=== PATIENT | female | born 1975 | race Caucasian/White ===

== ENCOUNTER 2021-05-29 11:23 | Day surgery (SDC) | payer OTHER ==
[~2021-05-29] VITALS: Ht 157.5 cm; Wt 94.5 kg
[2021-05-29 12:15] LABS: BASO # 0.1 K/mm3 (0.0-0.2); EOS # 0.2 K/mm3 (0.0-0.7); EOS % 2.7 % (0.0-4.0); GRAN % 67.9 % (42.2-75.2); HEMATOCRIT 39.9 % (37.0-47.0); HEMOGLOBIN 13.3 g/dl (12.5-16.0); LYMPH # 1.1 K/mm3 (1.2-3.4); LYMPH % 18.5 % (20.0-51.0); MEAN CELL VOLUME 71 fl (80.0-100.0); MEAN CORPUSCULAR HEMOGLOBIN 24 pg (27-31); MEAN CORPUSCULAR HGB CONC 33 g/dl (33.0-37.0); MEAN PLATELET VOLUME 9.1 fl (7.4-10.4); MONO # 0.6 K/mm3 (0.1-0.6); MONO % 9.6 % (1.7-9.3); PLATELET COUNT 256 K/mm3 (130-400); RED BLOOD COUNT 5.63 M/mm3 (4.10-5.30); REDCELL DISTRIBUTION WIDTH-CV 14.4 % (11.5-14.5)
[2021-05-29 13:20] LABS: BASO # 0.1 K/mm3 (0.0-0.2); BASO % 0.8 % (0.0-2.0); EOS # 0.1 K/mm3 (0.0-0.7); EOS % 2.1 % (0.0-4.0); GRAN # 4.3 K/mm3 (1.4-6.5); GRAN % 69.4 % (42.2-75.2); HEMATOCRIT 40.8 % (37.0-47.0); HEMOGLOBIN 13.5 g/dl (12.5-16.0); LYMPH # 1.2 K/mm3 (1.2-3.4); LYMPH % 18.7 % (20.0-51.0); MEAN CELL VOLUME 71 fl (80.0-100.0); MEAN CORPUSCULAR HEMOGLOBIN 23 pg (27-31); MEAN CORPUSCULAR HGB CONC 33 g/dl (33.0-37.0); MEAN PLATELET VOLUME 8.8 fl (7.4-10.4); MONO # 0.5 K/mm3 (0.1-0.6); MONO % 8.8 % (1.7-9.3); PLATELET COUNT 242 K/mm3 (130-400); RED BLOOD COUNT 5.76 M/mm3 (4.10-5.30); REDCELL DISTRIBUTION WIDTH-CV 14.4 % (11.5-14.5)
[2021-05-29 13:38] LABS: BILIRUBIN,TOTAL 0.6 mg/dL (0.2-1.2); CALCIUM 8.9 mg/dL (8.4-10.2); CREATININE, serum 1.2 mg/dL (0.57-1.11); POTASSIUM 3.9 mmol/L (3.5-4.5); TOTAL PROTEIN 8.7 gm/dL (6.2-8.1)
[2021-05-29 14:45] VITALS: BP 138/82; PULSE 79; TEMP 98.2
[2021-05-29] MEDS ORDERED: EUTHYROX175 MCG PO (14:57)
[2021-05-29] MEDS ORDERED: GLUCOPHAGE1000 MG PO (14:58)
[2021-05-29] MEDS ORDERED: PRIL40 PO (14:58)
[2021-05-29] MEDS ORDERED: ENBREL50 MG/1 ML SQ (14:59)
[2021-05-29] MEDS ORDERED: GLUCOPHAGE500 MG/TAB PO (14:59)
[2021-05-29] MEDS ORDERED: CYMBALTA 20MG20 MG PO (15:00)
[2021-05-29] MEDS ORDERED: PROAIR HFA0.09 MG/AC IH (15:00)
[2021-05-29] MEDS ORDERED: VEMLIDY25 MG PO (15:00)
[2021-05-29] MEDS ORDERED: FLONASE NASAL S16 GM NS (15:01)
[2021-05-29] MEDS ORDERED: ERGOCALCIFER50000 IU PO (15:02)
[2021-05-29] MEDS ORDERED: NORVASC 10MG10 MG PO (15:02)
[2021-05-29] MEDS ORDERED: PATANOL OPHTHALM5 ML OU (15:03)
[2021-05-29] MEDS ORDERED: PYRIDIUM 100MG100 MG PO (17:28)
[2021-05-29] MEDS ORDERED: NORCO 325 MG-51 TAB PO (17:29)
[2021-05-29 18:20] VITALS: BP 164/83; PULSE 69
[2021-05-29 18:35] VITALS: BP 162/82; PULSE 66
[2021-05-29 18:50] VITALS: BP 153/87; PULSE 63
[2021-05-29 19:05] VITALS: BP 156/87; PULSE 64
--- NOTE | 2021-05-29 19:20 | NUR ---
Pt recently arrived to the floor from [facility]. She is alert and oriented although very drowsy. Pt did ambulate to the restroom from [facility] cart. She did well and did void without difficulty. Pt reports only pain complaint is her back, scheduled Tylenol given. Pt has tolerated water, she did order a dinner tray, has not arrived yet. Pts is at bedside. Lung sound clear, heart rate regular. IV to left AC with fluids infusing from [facility]. Pt aware that she will be going home tonight as long as the criteria are met. Explained those to her as well as oriented her to her room. All questions answered, call light within reach
[2021-05-29 19:35] VITALS: BP 156/87; PULSE 64; TEMP 98.5
--- NOTE | 2021-05-29 21:30 | NUR ---
Patient met discharge criteria. This nurse went over discharge instructions as well as additional education. Patient had no additional questions or concerns. Patient left the floor at approximately 2115 via wheelchair. Patients spouse was at her side as well as a PCT when patient was discharged.
== END 2021-05-29 21:15 | disposition home or self-care (01) ==
LOC: COL.ER 11:23 → SDCO 13:04 → SURG 18:15 → SDCO 21:15
PROVIDERS: Nurse Practitioner
DX: N20.1 Calculus of ureter (principal); G47.33 Obstructive sleep apnea (adult) (pediatric); Z99.89 Dependence on other enabling machines and devices
CPT/HCPCS: OP; C1769; C2617; J0690; J1100; J1885; J2270; J2405; J2704; J3010; J7030; Q9967